=== PATIENT | male | born 1965 | race Caucasian/White ===

== ENCOUNTER 2018-03-28 19:00 | Emergency (ER) | payer OTHER ==
[~2018-03-28] VITALS: Ht 172.7 cm; Wt 82.2 kg
[~2018-03-28 19:00] MED LIST: APAP/HYDROCODON1 T13 PO; PRI20 PO
[2018-03-28 19:08] VITALS: Ht 172.7 cm; Wt 82.2 kg
[2018-03-28 22:27] VITALS: BP 142/87
== END 2018-03-28 22:27 | disposition home or self-care (01) ==
LOC: ED 19:00
PROC: 3E0234Z Introduction of Serum, Toxoid and Vaccine into Muscle, Percutaneous Approach (ICD-10-PCS; principal; 2018-03-28)
DX: S61.203A Unspecified open wound of left middle finger without damage to nail, initial encounter (principal); W26.0XXA Contact with knife, initial encounter; Y92.9 Unspecified place or not applicable
CPT/HCPCS: 90715